=== PATIENT | female | born 1955 | race Caucasian/White ===

== ENCOUNTER 2018-11-30 23:13 | Emergency (ER) | payer MEDICARE ==
[~2018-11-30] VITALS: Ht 172.7 cm; Wt 81.0 kg
[~2018-11-30 23:13] MED LIST: HYDR12.517; HYDR25TA6 PO; LORA-445 PO; POTA20PA25; SIMV10TA3 PO
--- NOTE | 2018-11-30 23:48 | NUR ---
C/O SWELLING OF MOUTH AND THROAT STARTED 2300 THIS EVENING.
--- NOTE | 2018-11-30 23:49 | NUR ---
PT DENIES DIFFICULTY BREATHING AT ANY TIME, PT IN NO ACUTE DISTRESS AT THIS TIME. ATTACHED TO O2 AND BP MONITORS.
[2018-12-01] MEDS ORDERED: FAMOTIDINE 20 MG TABLET PO ONE
[2018-12-01] MEDS ORDERED: DIPHENHYDRAMINE 50 MG CAPSULE PO ONE
[2018-12-01 00:33] LABS: BASOPHILS # (AUTO) 0.04 x10^3/uL (0-0.1); BASOPHILS % (AUTO) 1 % (0-1); EOSINOPHILS # (AUTO) 0.13 x10^3/uL (0-0.4); EOSINOPHILS % (AUTO) 2 % (1-7); LYMPHOCYTES # (AUTO) 2.18 x10^3/uL (1-3.4); LYMPHOCYTES % (AUTO) 41 % (22-44); MD NO; MEAN CORPUSCULAR HEMOGLOBIN 31.7 pg (27.0-34.8); MEAN CORPUSCULAR HGB CONC 34.1 g/dL (32.4-35.8); MEAN CORPUSCULAR VOLUME 92.9 fL (80-100); MEAN PLATELET VOLUME 8.5 fL (7.4-10.4); MONOCYTES # (AUTO) 0.38 x10^3/uL (0.2-0.8); MONOCYTES % (AUTO) 7 % (2-9); NEUTROPHILS # (AUTO) 2.63 x10^3/uL (1.8-6.8); NEUTROPHILS % (AUTO) 49 % (42-75); PLATELET COUNT 160 x10^3/uL (130-400); RED BLOOD COUNT 4.44 x10^6/uL (3.82-5.3); RED CELL DISTRIBUTION WIDTH 12.7 % (9.6-15.2)
[2018-12-01] MEDS ORDERED: FAMOTIDINE 20 MG TABLET ONE (00:34)
[2018-12-01] MEDS ORDERED: DIPHENHYDRAMINE 25 MG CAPSULE ONE (00:34)
--- NOTE | 2018-12-01 00:38 | NUR ---
PT MEDICATED PER EMAR. NO ACUTE DISTRESSED NOTED
[2018-12-01 00:44] LABS: ALANINE AMINOTRANSFERASE 39 U/L (12-78); ALBUMIN 3.9 g/dL (3.4-5.0); ANION GAP 8 mmol/L (5-15); CALCIUM 9.1 mg/dL (8.5-10.1); CHLORIDE 112 mmol/L (98-107); CREATININE 1.01 mg/dL (0.55-1.02)
[2018-12-01 00:48] LABS: ALKALINE PHOSPHATASE 70 U/L (45-117); BILIRUBIN,TOTAL 0.4 mg/dL (0.2-1.0); TOTAL PROTEIN 6.9 g/dL (6.4-8.2); TROPONIN I < 0.015 ng/mL (0.000-0.045)
[2018-12-01 00:58] VITALS: BP 152/97
== END 2018-12-01 02:11 | disposition home or self-care (01) ==
LOC: ED 12-01 02:05
DX: R07.89 Other chest pain (principal); Z90.49 Acquired absence of other specified parts of digestive tract; E78.5 Hyperlipidemia, unspecified; I10 Essential (primary) hypertension
CPT/HCPCS: 36415; 71045; 80053; 83880; 84484; 85025; 93005; 99284; J7512

== ENCOUNTER 2019-07-04 12:27 | Emergency (ER) | payer MEDICARE ==
[~2019-07-04] VITALS: Ht 172.7 cm; Wt 82.8 kg
[~2019-07-04 12:27] MED LIST changes: +SIMV10TA18 PO; -SIMV10TA3 PO
[2019-07-04 13:17] LABS: BASOPHILS # (AUTO) 0.04 x10^3/uL (0-0.1); BASOPHILS % (AUTO) 1 % (0-1); EOSINOPHILS # (AUTO) 0.17 x10^3/uL (0-0.4); EOSINOPHILS % (AUTO) 3 % (1-7); LYMPHOCYTES % (AUTO) 33 % (22-44); MD NO; MEAN CORPUSCULAR HEMOGLOBIN 31.3 pg (27.0-34.8); MEAN CORPUSCULAR HGB CONC 34.2 g/dL (32.4-35.8); MEAN CORPUSCULAR VOLUME 91.4 fL (80-100); MEAN PLATELET VOLUME 8.3 fL (7.4-10.4); MONOCYTES # (AUTO) 0.49 x10^3/uL (0.2-0.8); MONOCYTES % (AUTO) 7 % (2-9); NEUTROPHILS # (AUTO) 3.78 x10^3/uL (1.8-6.8); NEUTROPHILS % (AUTO) 57 % (42-75); PLATELET COUNT 178 x10^3/uL (130-400); RED CELL DISTRIBUTION WIDTH 13.1 % (9.6-15.2)
[2019-07-04 13:23] LABS: ALANINE AMINOTRANSFERASE 35 U/L (12-78); ALBUMIN 3.7 g/dL (3.4-5.0); ANION GAP 6 mmol/L (5-15); CALCIUM 9.2 mg/dL (8.5-10.1); CHLORIDE 109 mmol/L (98-107); CREATININE 1.19 mg/dL (0.55-1.02)
[2019-07-04 13:26] LABS: ALKALINE PHOSPHATASE 84 U/L (45-117); BILIRUBIN,TOTAL 0.5 mg/dL (0.2-1.0); TOTAL PROTEIN 7.1 g/dL (6.4-8.2)
--- NOTE | 2019-07-04 14:27 | NUR ---
PT AMBULATORY TO RESTROOM WITH STEADY GAIT FOR URINE SAMPLE.
--- NOTE | 2019-07-04 14:34 | NUR ---
PT HERE WITH C/O RIGHT UPPER QUADRANT ABDOMINAL PAIN THAT RADIATES TO BACK X 3 DAYS. PT DRESSED IN GOWN AND UA SENT. PT ON MONITOR, ROOM AIR, NAD, CALL LIGHT WITHIN REACH. ABDOMINAL US AND LAB WORK ALREADY RESULTED AND MD AT BEDSIDE.
[2019-07-04 15:00] LABS: MICROSCOPIC INDICATED
[2019-07-04 15:01] LABS: TROPONIN I < 0.015 ng/mL (0.000-0.045)
[2019-07-04 15:23] LABS: CULTURE INDICATED? NO
--- NOTE | 2019-07-04 15:29 | NUR ---
ALL RESULTS BACK AT THIS TIME, CHART UP FOR RECHECK.
--- NOTE | 2019-07-04 16:45 | NUR ---
BREAK RN: PT TO CT SCAN VIA MARGARITO
[2019-07-04] MEDS ORDERED: OMNIPAQUE 350 MG/ML, 100ML BOTTLE ONE (17:08)
[2019-07-04 17:12] VITALS: BP 143/74
--- NOTE | 2019-07-04 18:04 | NUR ---
Patient/Caregiver given discharge instructions and they have confirmed that they understand the instructions. Patient ambulatory with steady gait.
== END 2019-07-04 18:05 | disposition home or self-care (01) ==
LOC: ED 15:15
DX: K80.50 Calculus of bile duct without cholangitis or cholecystitis without obstruction (principal); R10.11 Right upper quadrant pain; E78.5 Hyperlipidemia, unspecified; I10 Essential (primary) hypertension; R06.02 Shortness of breath
CPT/HCPCS: 36415; 71275; 76700; 80053; 81001; 83690; 84484; 85025; 85379; 93005; 99285; Q9967